=== PATIENT | male | born 1985 | race Caucasian/White ===

== ENCOUNTER 2024-05-29 17:28 | Inpatient (IN) ==
--- NOTE | 2024-05-29 18:13 | Emergency Department Note ---
Impression & Plan Acute tonsillitis, Strep tonsillitis, Fever, Non-ST elevation MS (NSTEMI), Tonsillar abscess ED Provider Note HISTORY OF PRESENT ILLNESS: Patient is a 38-year-old male presenting with fever and sore throat. Patient reports that he started have a "tickle" in his throat a week ago. He states that over the last week his throat pain has significantly worsened. He states that he is unable to lay flat secondary to being short of breath with his throat pain. He states that he feels like he is unable to swallow secondary to pain in the throat and a fullness in the back of his throat. Does report that his voice sounds different and that has been ongoing for the last 48 hours. He denies any measured fevers but states [place] [facility] [facility] that he has to hang his sheets up because he is soaking through them. He states that he was given Motrin 2 hours ago. He has not been on any recent antibiotics or steroids, but does state the prison gave him a dose of amoxicillin prior to him coming to the ER. He reports some slight pain with movement of his neck but states it is more of a fullness sensation. He denies any changes in vision. Denies any numbness or tingling or weakness in extremities. Denies any chest pain. He reports shortness of breath secondary to feeling like his throat is closing. ROS: as above PHYSICAL EXAM: Constitutional: Patient appears in no acute distress. Patient has a hoarse sounding voice. HENT: Head: Normocephalic and atraumatic. Eyes: EOMI, PERRL Mouth/Throat: Mucous membranes moist. Significant edema to the bilateral tonsils. Uvula is midline but is being compressed from both sides by the tonsils. No significant exudate on the tonsils. Neck: Trachea midline. Neck supple. Cardiovascular: Tachycardic with regular rhythm. No murmurs, rubs or gallops. Intact distal pulses. Pulmonary/Chest: No respiratory distress. Breath sounds clear and equal bilaterally. No wheezes or rales. Abdominal: Abdomen soft, no tenderness, rebound or guarding. Musculoskeletal: No edema, tenderness or deformity noted. Skin: Warm and dry. No rash, erythema, pallor or cyanosis Psychiatric: Appropriate mood and affect for situation. Neurological: Alert and keenly responsive. CN II-XII grossly intact, moving all extremities equally and fully. MDM: - Vitals signs showed fever and tachycardia. - History obtained via patient. History as above. - Chronic conditions affecting care: none - Differential diagnoses include, but are not limited to: retropharyngeal abscess; peritonsillar abscess; tonsillitis; pharyngitis; viral syndrome - Order placed for continuous cardiac monitoring. At this time, monitor showed rate of 90 bpm with normal sinus rhythm, per my interpretation. - External medical records reviewed. - EKG interpreted by myself showed normal sinus rhythm. Rate tachycardic at 116 bpm. QT 322. No acute ischemic changes. - Laboratory workup interpreted by myself showed leukocytosis (WBC 15.64) with neutrophil predominance; normal PT/INR; stable electrolytes; elevated troponin (82.8); normal lactate; normal procalcitonin - CXR negative for pneumonia, per my interpretation - Repeat troponin WNL - Patient given 2L NS, 1g IV tylenol and 6 mg IV dexamethasone for fluid resuscitation, fever and pharyngitis - Group A strep positive - Blood cultures obtained - Patient given IV unasyn in ER for pharyngitis - CT soft tissue neck wo contrast showed marked enlargement of pontine tonsils, left greater than right. No definite send peritonsillar abscess but recommended with IV contrast. - Discussed case with ENT control room technician, Dr. Grossman, at 21:05. Recommended steroids and anabiotics and follow up for tonsillectomy in outpatient setting. - CT soft tissue neck with IV contrast showed showed a [id number] left palatine tonsillar abscess. Remonstrated enlargement of pontine tonsils and asymmetric mucosal thickening of right oral and hypopharynx. - Dr. Grossman again contacted. Agreed with steroids and antibiotics. Will see as consult in hospital. - Given patient's significant posterior oropharynx swelling and difficulties tolerating oral intake, will admit to hospital service for airway monitoring and further hydration and antibiotics. - Discussion was had with child welfare caseworker about patient's case and need for admission - Hospitalist, Dr. Álvarez, consulted for admission - [facility] admitted to [facility] for further evaluation and management, ASSESSMENT AND PLAN: Diagnosis: acute tonsillitis; strep tonsillitis; fever; left tonsillar abscess; NSTEMI Plan: admit Past Med/Surg History Problem List (Updated 05/29/24 @ 22:37 by Michelle Ernst MD) Tonsillar abscess (Acute) Non-ST elevation MS (NSTEMI) (Acute) Fever (Acute) Strep tonsillitis (Acute) Acute tonsillitis (Acute) Social History Smoking Status: Unknown if ever smoked Preferred Language: Telugu Feels Safe at Home: Yes Results & Data (ED) Vital Signs Vital Signs - 24 hr 05/29/24 17:41 05/29/24 18:09 05/29/24 18:09 Temperature 37.8 C H Temperature Source Oral Pulse Rate 131 H 123 H 121 H Pulse Rate [Right Finger] Pulse Rate from SpO2 Sensor 119 H Pulse Rhythm [Right Finger] Pulse Strength [Right Finger] Respiratory Rate 18 14 Respiratory Effort / Characteristics Non-Labored Spontaneous Respiratory Depth Normal Respiratory Pattern Regular Blood Pressure 135/78 145/84 H Blood Pressure [Left Arm] Blood Pressure Mean 97 104 Blood Pressure Mean [Left Arm] Blood Pressure Position [Left Arm] Pulse Oximetry 92 96 Oxygen Delivery Method Room Air Room Air Sepsis Recent Fever Within 48 Hours Yes Sepsis New/Unexplained Change in Mental Status No Sepsis Action Taken by Nursing No Action Required 05/29/24 18:33 05/29/24 18:33 05/29/24 19:00 Temperature Temperature Source Pulse Rate 107 H 99 H Pulse Rate [Right Finger] 110 H Pulse Rate from SpO2 Sensor 108 H 102 H Pulse Rhythm [Right Finger] Regular Pulse Strength [Right Finger] Normal Respiratory Rate 14 16 16 Respiratory Effort / Characteristics Non-Labored Spontaneous Respiratory Depth Normal Respiratory Pattern Regular Blood Pressure 128/82 122/95 Blood Pressure [Left Arm] 128/82 Blood Pressure Mean 97 104 Blood Pressure Mean [Left Arm] 97 Blood Pressure Position [Left Arm] Sitting Pulse Oximetry 96 96 95 Oxygen Delivery Method Room Air Room Air Room Air Sepsis Recent Fever Within 48 Hours Sepsis New/Unexplained Change in Mental Status Sepsis Action Taken by Nursing 05/29/24 19:48 05/29/24 20:00 05/29/24 21:58 Temperature Temperature Source Pulse Rate 86 Pulse Rate [Right Finger] 86 Pulse Rate from SpO2 Sensor Pulse Rhythm [Right Finger] Regular Pulse Strength [Right Finger] Normal Respiratory Rate 18 Respiratory Effort / Characteristics Non-Labored Spontaneous Respiratory Depth Normal Respiratory Pattern Regular Blood Pressure Blood Pressure [Left Arm] 122/74 Blood Pressure Mean Blood Pressure Mean [Left Arm] 90 Blood Pressure Position [Left Arm] Semi-fowlers Pulse Oximetry 97 98 Oxygen Delivery Method Room Air Room Air Sepsis Recent Fever Within 48 Hours Sepsis New/Unexplained Change in Mental Status Sepsis Action Taken by Nursing Laboratory Data 05/29/24 18:20 05/29/24 18:20 Lab Results 05/29/24 05/29/24 05/29/24 Range/Units 18:10 18:20 21:11 WBC 15.64 H (4.8-10.8) K/ul RBC 4.10 L (4.70-6.10) M/uL Hgb 9.4 L (14.0-18.0) g/dl Hct 30.7 L (42.0-52.0) % MCV 74.9 L (80.0-100.0) fL MCH 22.9 L (25.0-34.0) pg MCHC 30.6 L (32.0-36.0) g/dL RDW Std Deviation 40.6 (36.4-46.3) fL RDW Coeff of Flor 15.0 H (11.5-14.5) % Plt Count 340 (130-400) K/uL MPV 10.5 (9.4-12.4) fL Immature Gran % (Auto) 0.3 % Neut % (Auto) 82.2 % Lymph % (Auto) 6.1 % [place] % (Auto) 11.1 % Eos % (Auto) 0.1 % Baso % (Auto) 0.2 % Neut # (Auto) 12.85 H (1.40-6.50) K/uL Lymph # (Auto) 0.95 L (1.20-3.40) K/uL [place] # (Auto) 1.74 H (0.11-0.59) K/uL Eos # (Auto) 0.02 (0.00-0.50) K/uL Baso # (Auto) 0.03 (0.00-0.20) K/uL Immature Gran # (Auto) 0.05 (0.01-0.20) K/uL PT 11.4 (9.0-12.0) Seconds INR 1.1 (0.9-1.1) Sodium 137 (136-145) mmol/L Potassium 3.7 (3.5-5.1) mmol/L Chloride 102 (98-107) mmol/L Carbon Dioxide 28 (21-32) mmol/L Anion Gap 7 (3-11) BUN 11 (6-23) mg/dl Creatinine 0.81 (0.6-1.4) mg/dl Est Cr Clr Drug Dosing 124.9 ml/min eGFR 116.46 BUN/Creatinine Ratio 13.6 (10-20) Glucose 110 H (70-99(Fasting)) mg/dl Lactate 0.8 (0.4-2.0) mmol/L Calcium 8.4 L (8.6-10.3) mg/dl Magnesium 1.8 (1.7-2.4) mg/dl Total Bilirubin 0.6 (0.2-1.0) mg/dl Direct Bilirubin 0.1 (0-0.2) mg/dl AST 17 (13-39) U/L ALT 17 (7-52) U/L Alkaline Phosphatase 124 H (34-104) U/L Troponin I High Sens 62.8 H* 11.2 D (0-20) pg/ml Total Protein 6.5 (6.0-8.3) gm/dl Albumin 3.6 (3.4-5.0) gm/dl Procalcitonin 0.13 (0-0.5) ng/ml Adenovirus (PCR) Not Detected (NotDetected) B. pertussis DNA (PCR) Not Detected (NotDetected) B.parapertussis DNA PCR Not Detected (NotDetected) C. pneumoniae DNA (PCR) Not Detected (NotDetected) Coronavirus OC43 (PCR) Not Detected (NotDetected) Coronavirus HKU1 (PCR) Not Detected (NotDetected) Coronavirus 229E (PCR) Not Detected (NotDetected) SARS-CoV-2 (PCR) Not Detected (NotDetected) Coronavirus NL63 (PCR) Not Detected (NotDetected) Human Metapneumovir PCR Not Detected (NotDetected) Influenza Type A (PCR) Not Detected (NotDetected) Influenza Type B (PCR) Not Detected (NotDetected) M. pneumoniae (PCR) Not Detected (NotDetected) Parainfluenza 1 (PCR) Not Detected (NotDetected) Parainfluenza 2 (PCR) Not Detected (NotDetected) Parainfluenza 3 (PCR) Not Detected (NotDetected) Parainfluenza 4 (PCR) Not Detected (NotDetected) RSV (PCR) Not Detected (NotDetected) Entero/Rhino (PCR) Not Detected (NotDetected) Group A Strep (PCR) DETECTED A (NotDetected) Administered Medications Discontinued Medications Dexamethasone Sodium Phosphate (DexamethasonePf 10 Mg/Ml Vial) 6 mg IV NOW ONE Stop: 05/29/24 18:11 Last Admin: 05/29/24 18:28 Dose: 6 mg Documented By: [facility] Acetaminophen (Ofirmev) 1,000 mg in 100 mls @ 400 mls/hr IV NOW STA Stop: 05/29/24 18:03 Last Infusion: 05/29/24 18:50 Dose: Infused Documented By: [facility] Admin: 05/29/24 18:28 Dose: 400 mls/hr Documented By: [facility] Sodium Chloride (Nss) 1,000 mls @ 999 mls/hr IV .Q1H1M ONE Stop: 05/29/24 19:10 Last Infusion: 05/29/24 21:58 Dose: Infused Documented By: Admin: 05/29/24 18:49 Dose: 999 mls/hr Documented By: [facility] Infusion: 05/29/24 18:49 Dose: Infused Documented By: [facility] Admin: 05/29/24 18:30 Dose: 999 mls/hr Documented By: [facility] Sodium Chloride (Nss) 1,000 mls @ 999 mls/hr IV .Q1H1M ONE Stop: 05/29/24 19:23 Last Infusion: 05/29/24 20:33 Dose: Infused Documented By: S Admin: 05/29/24 18:50 Dose: 999 mls/hr Documented By: [facility] Ampicillin Sodium/Sulbactam Sodium (Unasyn) 3,000 mg in 100 mls @ 200 mls/hr IV NOW STA Stop: 05/29/24 18:52 Last Infusion: 05/29/24 20:56 Dose: Infused Documented By: Admin: 05/29/24 18:46 Dose: 200 mls/hr Documented By: [facility] Ioversol (Optiray 320 100ml) 93 ml IV ONCE ONE Stop: 05/29/24 21:04 Last Admin: 05/29/24 21:03 Dose: 93 ml Documented By: [facility] Imaging Data Radiologist's Impression: Chest X-Ray 05/29/24 17:48 EXAM: Radiograph of the Chest 1 View INDICATION: Sepsis. TECHNIQUE: Frontal view of the chest. COMPARISON: No relevant prior studies available. FINDINGS: Lungs and pleural spaces: No consolidation or pulmonary edema. No pleural effusion or pneumothorax. Heart: Shape and configuration within normal limits allowing for technique. Mediastinum: Normal contour. Bones/joints: No fracture, erosion or dislocation. Soft tissues: No abnormality noted. No radiopaque foreign body noted. Upper abdomen: No abnormality noted. IMPRESSION: No abnormality noted. ACT 112: Negative or not required by law. Electronically signed by Magy Adam 05-29-2024 6:50 PM Soft Tissue [address] 05/29/24 18:09 Exam(s): CT NECK Without Contrast EXAM: CT Neck Without Intravenous Contrast CLINICAL HISTORY: Throat Pain. TECHNIQUE: Axial computed tomography images of the neck without intravenous contrast. CTDI is 15.69 mGy and DLP is 428.76 mGy-cm. Automated exposure control was utilized for the study. A dose lowering technique was utilized adhering to the principles of ALARA. COMPARISON: No relevant prior studies available. FINDINGS: Brainstem: Marked enlargement of the pontine tonsils, left greater than right. Oropharynx: There is asymmetric thickening of the left oropharynx and hypopharynx. Hypopharynx: See above. Larynx: Unremarkable. Normal epiglottis. Trachea: Unremarkable. Retropharyngeal space: Unremarkable. Submandibular/parotid glands: Unremarkable. Glands are normal in size. Thyroid: Unremarkable. No enlarged or calcified nodules. Bones/joints: No acute fracture. Soft tissues: Unremarkable. Vasculature: No acute findings. Lymph nodes: Prominent bilateral lymphadenopathy is likely reactive, although nonspecific. Lung apices: Unremarkable as visualized. IMPRESSION: 1. Marked enlargement of the pontine tonsils, left greater than right. No definitive evidence of peritonsillar abscess, although evaluation is limited without IV contrast. 2. There is asymmetric thickening of the left oropharynx and hypopharynx. This is nonspecific. 3. Prominent bilateral lymphadenopathy is likely reactive, although nonspecific. Electronically signed by: Tracey Dias MD 05/29/24 20:[address] 05/29/24 20:45 Exam(s): CT NECK With Contrast IV Amt: 93ml opti 320 EXAM: CT Neck With Intravenous Contrast CLINICAL HISTORY: Tonsillar hypertrophy. TECHNIQUE: Axial computed tomography images of the neck with intravenous contrast. CTDI is 17.29 mGy and DLP is 485.21 mGy-cm. Automated exposure control was utilized for the study. A dose lowering technique was utilized adhering to the principles of ALARA. CONTRAST: Patient received 93ml opti 320 of IV contrast COMPARISON: CT neck without contrast from earlier today FINDINGS: Oropharynx: There is a 9 x 15 x 8 mm left palatine tonsillar abscess. No peritonsillar abscess. Hypopharynx: Redemonstrated enlargement of the pontine tonsils and asymmetric mucosal thickening of the right oral and hypopharynx. Larynx: Unremarkable. Normal epiglottis. Trachea: Unremarkable. Retropharyngeal space: Unremarkable. Submandibular/parotid glands: Unremarkable. Glands are normal in size. Thyroid: Unremarkable. No enlarged or calcified nodules. Bones/joints: No acute fracture. Soft tissues: Unremarkable. Vasculature: No acute findings. Lymph nodes: Unremarkable. No lymphadenopathy. Lung apices: Unremarkable as visualized. IMPRESSION: 1. There is a 9 x 15 x 8 mm left palatine tonsillar abscess. Redemonstrated enlargement of the pontine tonsils and asymmetric mucosal thickening of the right oral and hypopharynx. This is likely infectious. 2. No peritonsillar abscess. Electronically signed by: Tracey Dias MD 05/29/24 22:24 PM Discharge Plan Visit Data Chief Complaint: Shortness of Breath/Dyspnea Stated Complaint: SOB DUE TO SORE THROAT ED Provider: Michelle Ernst Discharge Problem: Acute tonsillitis, Strep tonsillitis, Fever, Non-ST elevation MS (NSTEMI), Tonsillar abscess Forms Stand Alone Forms: [facility] Referrals Referrals: [facility], [facility] [Other]
[2024-05-29] MEDS: dexAMETHasone**PF** 10 MG/ML VIAL IV ONE (18:28)
[2024-05-29] MEDS: ACETAMINOPHEN 1,000 MG/100 ML VIAL IV STA (18:28)
[2024-05-29] MEDS: SODIUM CHLORIDE 0.9% 1,000 ML IV ONE ×2 (18:30→18:50)
[2024-05-29] MEDS: AMPICILLIN/SULBACTAM SOD 3,000 MG/100 ML BAG IV STA (18:46)
--- NOTE | 2024-05-29 18:51 | XRay Report ---
EXAM: Radiograph of the Chest 1 View INDICATION: Sepsis. TECHNIQUE: Frontal view of the chest. COMPARISON: No relevant prior studies available. FINDINGS: Lungs and pleural spaces: No consolidation or pulmonary edema. No pleural effusion or pneumothorax. Heart: Shape and configuration within normal limits allowing for technique. Mediastinum: Normal contour. Bones/joints: No fracture, erosion or dislocation. Soft tissues: No abnormality noted. No radiopaque foreign body noted. Upper abdomen: No abnormality noted. IMPRESSION: No abnormality noted. ACT 112: Negative or not required by law. Electronically signed by Magy Adam 05-29-2024 6:50 PM
[2024-05-29 18:54] LABS: Basophils # (auto) 0.03 K/uL (0.00-0.20); Basophils % (auto) 0.2 %; Eosinophils # (auto) 0.02 K/uL (0.00-0.50); Eosinophils % (auto) 0.1 %; Hematocrit (blood only) 30.7 % (42.0-52.0); Hemoglobin 9.4 g/dl (14.0-18.0); Immature Granulocytes # (auto) 0.05 K/uL (0.01-0.20); Immature Granulocytes % (auto) 0.3 %; Lymphocytes # (auto) 0.95 K/uL (1.20-3.40); Lymphocytes % (auto) 6.1 %; Mean Corpuscular Hemoglobin 22.9 pg (25.0-34.0); Mean Corpuscular Hgb Conc 30.6 g/dL (32.0-36.0); Mean Corpuscular Volume 74.9 fL (80.0-100.0); Mean Platelet Volume 10.5 fL (9.4-12.4); Monocytes # (auto) 1.74 K/uL (0.11-0.59); Monocytes % (auto) 11.1 %; Neutrophils # (auto) 12.85 K/uL (1.40-6.50); Neutrophils % (auto) 82.2 %; Platelet Count 340 K/uL (130-400); RDW Standard Deviation 40.6 fL (36.4-46.3); White Blood Count 15.64 K/ul (4.8-10.8)
[2024-05-29 19:07] LABS: Albumin Level 3.6 gm/dl (3.4-5.0); BUN Creatinine Ratio 13.6 (10-20); Bilirubin Direct 0.1 mg/dl (0-0.2); Bilirubin,Total 0.6 mg/dl (0.2-1.0); Calcium 8.4 mg/dl (8.6-10.3); Creatinine Clr Calc Pharmacy 124.9 ml/min; Magnesium 1.8 mg/dl (1.7-2.4); Potassium 3.7 mmol/L (3.5-5.1); Total Protein 6.5 gm/dl (6.0-8.3)
[2024-05-29 19:19] LABS: INR 1.1 (0.9-1.1); Prothrombin Time 11.4 Seconds (9.0-12.0); Troponin I High Sensitivity 62.8 pg/ml (0-20)
[2024-05-29 19:53] LABS: Adenovirus PCR Not Detected (NotDetected); Bordetella parapertussis PCR Not Detected (NotDetected); Bordetella pertussis PCR Not Detected (NotDetected); Chlamydia pneumoniae PCR Not Detected (NotDetected); Coronavirus 229E PCR Not Detected (NotDetected); Coronavirus CoV-2 (COVID19)PCR Not Detected (NotDetected); Coronavirus HKU1 PCR Not Detected (NotDetected); Coronavirus NL63 PCR Not Detected (NotDetected); Coronavirus OC43PCR Not Detected (NotDetected); Human Metapneumovirus PCR Not Detected (NotDetected); Influenza A PCR Not Detected (NotDetected); Influenza B PCR Not Detected (NotDetected); Mycoplasma pneumoniae PCR Not Detected (NotDetected); Parainfluenza Virus 1 PCR Not Detected (NotDetected); Parainfluenza Virus 2 PCR Not Detected (NotDetected); Parainfluenza Virus 3 PCR Not Detected (NotDetected); Parainfluenza Virus 4 PCR Not Detected (NotDetected); Respiratory Syncytial VirusPCR Not Detected (NotDetected); Rhinovirus/Enterovirus PCR Not Detected (NotDetected)
--- NOTE | 2024-05-29 20:38 | CT Scan Report ---
Exam(s): CT NECK Without Contrast EXAM: CT Neck Without Intravenous Contrast CLINICAL HISTORY: Throat Pain. TECHNIQUE: Axial computed tomography images of the neck without intravenous contrast. CTDI is 15.69 mGy and DLP is 428.76 mGy-cm. Automated exposure control was utilized for the study. A dose lowering technique was utilized adhering to the principles of ALARA. COMPARISON: No relevant prior studies available. FINDINGS: Brainstem: Marked enlargement of the pontine tonsils, left greater than right. Oropharynx: There is asymmetric thickening of the left oropharynx and hypopharynx. Hypopharynx: See above. Larynx: Unremarkable. Normal epiglottis. Trachea: Unremarkable. Retropharyngeal space: Unremarkable. Submandibular/parotid glands: Unremarkable. Glands are normal in size. Thyroid: Unremarkable. No enlarged or calcified nodules. Bones/joints: No acute fracture. Soft tissues: Unremarkable. Vasculature: No acute findings. Lymph nodes: Prominent bilateral lymphadenopathy is likely reactive, although nonspecific. Lung apices: Unremarkable as visualized. IMPRESSION: 1. Marked enlargement of the pontine tonsils, left greater than right. No definitive evidence of peritonsillar abscess, although evaluation is limited without IV contrast. 2. There is asymmetric thickening of the left oropharynx and hypopharynx. This is nonspecific. 3. Prominent bilateral lymphadenopathy is likely reactive, although nonspecific. Electronically signed by: Tracey Dias MD 05/29/24 20:37 PM
[2024-05-29] MEDS: OPTIRAY 320 100ml IV ONE (21:03)
--- NOTE | 2024-05-29 22:25 | CT Scan Report ---
Exam(s): CT NECK With Contrast IV Amt: 93ml opti 320 EXAM: CT Neck With Intravenous Contrast CLINICAL HISTORY: Tonsillar hypertrophy. TECHNIQUE: Axial computed tomography images of the neck with intravenous contrast. CTDI is 17.29 mGy and DLP is 485.21 mGy-cm. Automated exposure control was utilized for the study. A dose lowering technique was utilized adhering to the principles of ALARA. CONTRAST: Patient received 93ml opti 320 of IV contrast COMPARISON: CT neck without contrast from earlier today FINDINGS: Oropharynx: There is a 9 x 15 x 8 mm left palatine tonsillar abscess. No peritonsillar abscess. Hypopharynx: Redemonstrated enlargement of the pontine tonsils and asymmetric mucosal thickening of the right oral and hypopharynx. Larynx: Unremarkable. Normal epiglottis. Trachea: Unremarkable. Retropharyngeal space: Unremarkable. Submandibular/parotid glands: Unremarkable. Glands are normal in size. Thyroid: Unremarkable. No enlarged or calcified nodules. Bones/joints: No acute fracture. Soft tissues: Unremarkable. Vasculature: No acute findings. Lymph nodes: Unremarkable. No lymphadenopathy. Lung apices: Unremarkable as visualized. IMPRESSION: 1. There is a 9 x 15 x 8 mm left palatine tonsillar abscess. Redemonstrated enlargement of the pontine tonsils and asymmetric mucosal thickening of the right oral and hypopharynx. This is likely infectious. 2. No peritonsillar abscess. Electronically signed by: Tracey Dias MD 05/29/24 22:24 PM
[2024-05-29 23:34] LABS: Appearance Urine Clear (Clear); Bilirubin Urine Negative (Negative); Blood Urine Negative (Negative); Color Urine Yellow; Glucose Urine UA Negative (Negative); Ketones Urine 2+ (Negative); Leukocyte Esterase Urine Negative (Negative); Nitrite Urine Negative (Negative); Protein Urine Negative (Negative); Specific Gravity Urine > 1.045 (1.000-1.030); Urobilinogen Urine Negative (Negative); pH Urine 5.5 (4.5-7.5)
[2024-05-30] MEDS: Patient's ALLERGY Info needs ENTERED STA (00:05)
--- NOTE | 2024-05-30 00:11 | History & Physical Report ---
Date of Service May 29, 2024 Assessment & Plan (1) Tonsillar abscess: Plan: 38-year-old male with no significant past medical history coming from jail states that since last 5 days he is having sore throat which is getting progressively worse. Today he was feeling short of breath and also difficulty swallowing. Was given a dose of Augmentin in the jail and was sent in here. Was spiking temperatures in the ER. CT scan with contrast showing tonsillar abscess. Status post Unasyn and Decadron. Currently he is feeling better. States currently shortness of breath improved and no difficulty swallowing and states he can eat okay now. Denies any headache. No chest pain or shortness of. No nausea. No abdominal pain. Normal bowel and bladder movements. Denies blood in stools or black stools. Denies hematuria. Hemodynamics okay currently. Patient states he takes Suboxone 12 mg daily and is confirmed on phone with the medical [facility] at jail. Tonsillar abscess Group A strep on bio fire Tonsillitis Left [place] tonsillar abscess Presented with shortness of breath and difficulty swallowing Received Decadron and Unasyn and currently feeling better Saturating okay on room air Seems comfortable Will keep him n.p.o., IV fluids IV Unasyn IV Tylenol as needed ENT consulted Close monitor Anemia Hemoglobin 9.4 MCV 74 Will check stool for Hemoccult Iron studies Vitamin B12 and folate levels Needs follow-up Elevated troponin Initial troponin 62 but repeat is 11.2 Will follow serial enzymes and echo Patient on Suboxone DVT prophylaxis SCDs for now Disposition Telemetry Full code. History of Present Illness Chief Complaint: Sore throat and shortness of breath Primary Care Provider: [facility] 38-year-old male with no significant past medical history coming from jail states that since last 5 days he is having sore throat which is getting progressively worse. Today he was feeling short of breath and also difficulty swallowing. Was given a dose of Augmentin in the jail and was sent in here. Was spiking temperatures in the ER. CT scan with contrast showing tonsillar abscess. Status post Unasyn and Decadron. Currently he is feeling better. States currently shortness of breath improved and no difficulty swallowing and states he can eat okay now. Denies any headache. No chest pain or shortness of. No nausea. No abdominal pain. Normal bowel and bladder movements. Denies blood in stools or black stools. Denies hematuria. Hemodynamics okay currently. Patient states he takes Suboxone 12 mg daily and is confirmed on phone with the medical department at [facility]. Past medical history. None Past surgical history none as per patient Social history. Used to smoke 2 packs of cigarettes in a week for about 5 to 8 years but not smoking since last 2 years. Denies any alcohol use. Denies any drug use. Family history. Denies any family history. Allergies Allergy/AdvReac Type Severity Reaction Status Date / Time No Known Allergies Allergy Unverified 05/30/24 00:02 Home Medications Medication Instructions Recorded Confirmed Type Suboxone 13 mg PO DAILY 05/30/24 05/30/24 History buprenorphine HCl 2 mg sublingual 4 mg sublingual DAILY 05/30/24 05/30/24 History tablet buprenorphine HCl 8 mg sublingual 8 mg sublingual DAILY 05/30/24 05/30/24 History tablet Past Med/Surg History Problem List (Updated 05/29/24 @ 22:37 by Michelle Ernst MD) Tonsillar abscess (Acute) Non-ST elevation [place] (NSTEMI) (Acute) Fever (Acute) Strep tonsillitis (Acute) Acute tonsillitis (Acute) Social History Smoking Status: Former smoker Tobacco Type: Cigarettes Smoking End Date: 2021; Hx Alcohol Use: No Hx Substance Use: Yes Preferred Language: Lithuanian Communication Ability: Effective Hose Cementer Required: No Beliefs That Will Affect Care: None Current Living Situation: Other Current Living Situation Comment: [facility] Feels Safe at Home: Yes Assistive Devices: Glasses Review of Systems Review of Systems: All systems reviewed & are unremarkable except as noted in HPI & below Physical Exam Physical Exam: General- Not in distress Head- atraumatic Eyes- PERRL ENT- enlarged tonsils seen Neck- supple, no JVD. Lungs- clear to auscultation no wheezing or crackles Heart- regular rhythm; no murmur, no gallop. Abdomen- normal bowel sounds, soft, nontender, no distension. Extremities- no pretibial edema, no erythema seen Neuro- alert, oriented PERRL, no facial palsy; no dysarthria; moves extremities Results & Data Results & Data Vital Signs (Past 12 Hours) Vital Signs Temp Pulse Pulse Resp BP BP Pulse Ox 05/29/24 22:00 92 H 18 120/81 98 05/29/24 21:58 86 05/29/24 20:00 86 18 122/74 98 05/29/24 19:48 97 05/29/24 19:00 99 H 16 122/95 95 05/29/24 18:33 107 H 16 128/82 96 05/29/24 18:33 110 H 14 128/82 96 05/29/24 18:09 121 H 14 145/84 H 96 05/29/24 18:09 123 H 05/29/24 17:41 37.8 C H 131 H 18 135/78 92 O2 Del Method 05/29/24 22:00 Room Air 05/29/24 21:58 05/29/24 20:00 Room Air 05/29/24 19:48 Room Air 05/29/24 19:00 Room Air 05/29/24 18:33 Room Air 05/29/24 18:33 Room Air 05/29/24 18:09 Room Air 05/29/24 18:09 05/29/24 17:41 Room Air Diagnostic Findings Laboratory Results WBC 15.64 K/ul (4.8-10.8) H 05/29/24 18:20 RBC 4.10 M/uL (4.70-6.10) L 05/29/24 18:20 Hgb 9.4 g/dl (14.0-18.0) L 05/29/24 18:20 Hct 30.7 % (42.0-52.0) L 05/29/24 18:20 MCV 74.9 fL (80.0-100.0) L 05/29/24 18:20 MCH 22.9 pg (25.0-34.0) L 05/29/24 18:20 MCHC 30.6 g/dL (32.0-36.0) L 05/29/24 18:20 RDW Std Deviation 40.6 fL (36.4-46.3) 05/29/24 18:20 RDW Coeff of Flor 15.0 % (11.5-14.5) H 05/29/24 18:20 Plt Count 340 K/uL (130-400) 05/29/24 18:20 MPV 10.5 fL (9.4-12.4) 05/29/24 18:20 Immature Gran % (Auto) 0.3 % 05/29/24 18:20 Neut % (Auto) 82.2 % 05/29/24 18:20 Lymph % (Auto) 6.1 % 05/29/24 18:20 [place] % (Auto) 11.1 % 05/29/24 18:20 Eos % (Auto) 0.1 % 05/29/24 18:20 Baso % (Auto) 0.2 % 05/29/24 18:20 Neut # (Auto) 12.85 K/uL (1.40-6.50) H 05/29/24 18:20 Lymph # (Auto) 0.95 K/uL (1.20-3.40) L 05/29/24 18:20 [place] # (Auto) 1.74 K/uL (0.11-0.59) H 05/29/24 18:20 Eos # (Auto) 0.02 K/uL (0.00-0.50) 05/29/24 18:20 Baso # (Auto) 0.03 K/uL (0.00-0.20) 05/29/24 18:20 Immature Gran # (Auto) 0.05 K/uL (0.01-0.20) 05/29/24 18:20 PT 11.4 Seconds (9.0-12.0) 05/29/24 18:20 INR 1.1 (0.9-1.1) 05/29/24 18:20 Sodium 137 mmol/L (136-145) 05/29/24 18:20 Potassium 3.7 mmol/L (3.5-5.1) 05/29/24 18:20 Chloride 102 mmol/L (98-107) 05/29/24 18:20 Carbon Dioxide 28 mmol/L (21-32) 05/29/24 18:20 Anion Gap 7 (3-11) 05/29/24 18:20 BUN 11 mg/dl (6-23) 05/29/24 18:20 Creatinine 0.81 mg/dl (0.6-1.4) 05/29/24 18:20 Est Cr Clr Drug Dosing 124.9 ml/min 05/29/24 18:20 eGFR 116.46 05/29/24 18:20 BUN/Creatinine Ratio 13.6 (10-20) 05/29/24 18:20 Glucose 110 mg/dl (70-99(Fasting)) H 05/29/24 18:20 Lactate 0.8 mmol/L (0.4-2.0) 05/29/24 18:20 Calcium 8.4 mg/dl (8.6-10.3) L 05/29/24 18:20 Magnesium 1.8 mg/dl (1.7-2.4) 05/29/24 18:20 Total Bilirubin 0.6 mg/dl (0.2-1.0) 05/29/24 18:20 Direct Bilirubin 0.1 mg/dl (0-0.2) 05/29/24 18:20 AST 17 U/L (13-39) 05/29/24 18:20 ALT 17 U/L (7-52) 05/29/24 18:20 Alkaline Phosphatase 124 U/L (34-104) H 05/29/24 18:20 Troponin I High Sens 11.2 pg/ml (0-20) D 05/29/24 21:11 Total Protein 6.5 gm/dl (6.0-8.3) 05/29/24 18:20 Albumin 3.6 gm/dl (3.4-5.0) 05/29/24 18:20 Procalcitonin 0.13 ng/ml (0-0.5) 05/29/24 18:20 Urine Color Yellow 05/29/24 23:10 Urine Appearance Clear (Clear) 05/29/24 23:10 Urine pH 5.5 (4.5-7.5) 05/29/24 23:10 Ur Specific [place] > 1.045 (1.000-1.030) H 05/29/24 23:10 Urine Protein Negative (Negative) 05/29/24 23:10 Urine Glucose (UA) Negative (Negative) 05/29/24 23:10 Urine Ketones 2+ (Negative) H 05/29/24 23:10 Urine Blood Negative (Negative) 05/29/24 23:10 Urine Nitrite Negative (Negative) 05/29/24 23:10 Urine Bilirubin Negative (Negative) 05/29/24 23:10 Urine Urobilinogen Negative (Negative) 05/29/24 23:10 Ur Leukocyte Esterase Negative (Negative) 05/29/24 23:10 Adenovirus (PCR) Not Detected (NotDetected) 05/29/24 18:10 B. pertussis DNA (PCR) Not Detected (NotDetected) 05/29/24 18:10 B.parapertussis DNA PCR Not Detected (NotDetected) 05/29/24 18:10 C. pneumoniae DNA (PCR) Not Detected (NotDetected) 05/29/24 18:10 Coronavirus OC43 (PCR) Not Detected (NotDetected) 05/29/24 18:10 Coronavirus HKU1 (PCR) Not Detected (NotDetected) 05/29/24 18:10 Coronavirus 229E (PCR) Not Detected (NotDetected) 05/29/24 18:10 SARS-CoV-2 (PCR) Not Detected (NotDetected) 05/29/24 18:10 Coronavirus NL63 (PCR) Not Detected (NotDetected) 05/29/24 18:10 Human Metapneumovir PCR Not Detected (NotDetected) 05/29/24 18:10 Influenza Type A (PCR) Not Detected (NotDetected) 05/29/24 18:10 Influenza Type B (PCR) Not Detected (NotDetected) 05/29/24 18:10 M. pneumoniae (PCR) Not Detected (NotDetected) 05/29/24 18:10 Parainfluenza 1 (PCR) Not Detected (NotDetected) 05/29/24 18:10 Parainfluenza 2 (PCR) Not Detected (NotDetected) 05/29/24 18:10 Parainfluenza 3 (PCR) Not Detected (NotDetected) 05/29/24 18:10 Parainfluenza 4 (PCR) Not Detected (NotDetected) 05/29/24 18:10 RSV (PCR) Not Detected (NotDetected) 05/29/24 18:10 Entero/Rhino (PCR) Not Detected (NotDetected) 05/29/24 18:10 Group A Strep (PCR) DETECTED (NotDetected) A 05/29/24 18:10 Impressions Chest X-Ray 05/29/24 17:48 EXAM: Radiograph of the Chest 1 View INDICATION: Sepsis. TECHNIQUE: Frontal view of the chest. COMPARISON: No relevant prior studies available. FINDINGS: Lungs and pleural spaces: No consolidation or pulmonary edema. No pleural effusion or pneumothorax. Heart: Shape and configuration within normal limits allowing for technique. Mediastinum: Normal contour. Bones/joints: No fracture, erosion or dislocation. Soft tissues: No abnormality noted. No radiopaque foreign body noted. Upper abdomen: No abnormality noted. IMPRESSION: No abnormality noted. ACT 112: Negative or not required by law. Electronically signed by Magy Adam 05-29-2024 6:[address] PM Soft Tissue Neck CT 05/29/24 20:45 Exam(s): CT NECK With Contrast IV Amt: 93ml opti 320 EXAM: CT Neck With Intravenous Contrast CLINICAL HISTORY: Tonsillar hypertrophy. TECHNIQUE: Axial computed tomography images of the neck with intravenous contrast. CTDI is 17.29 mGy and DLP is 485.21 mGy-cm. Automated exposure control was utilized for the study. A dose lowering technique was utilized adhering to the principles of ALARA. CONTRAST: Patient received 93ml opti 320 of IV contrast COMPARISON: CT neck without contrast from earlier today FINDINGS: Oropharynx: There is a 9 x 15 x 8 mm left palatine tonsillar abscess. No peritonsillar abscess. Hypopharynx: Redemonstrated enlargement of the pontine tonsils and asymmetric mucosal thickening of the right oral and hypopharynx. Larynx: Unremarkable. Normal epiglottis. Trachea: Unremarkable. Retropharyngeal space: Unremarkable. Submandibular/parotid glands: Unremarkable. Glands are normal in size. Thyroid: Unremarkable. No enlarged or calcified nodules. Bones/joints: No acute fracture. Soft tissues: Unremarkable. Vasculature: No acute findings. Lymph nodes: Unremarkable. No lymphadenopathy. Lung apices: Unremarkable as visualized. IMPRESSION: 1. There is a 9 x 15 x 8 mm left palatine tonsillar abscess. Redemonstrated enlargement of the pontine tonsils and asymmetric mucosal thickening of the right oral and hypopharynx. This is likely infectious. 2. No peritonsillar abscess. Electronically signed by: Tracey Dias MD 05/29/24 22:24 PM ECG Additional Comments: ECG sinus tachycardia rate of 116. No acute ST changes seen. QTc 447. Code Status & VTE Plan VTE Prophylaxis Plan VTE Prophylaxis will be ordered: Yes
[2024-05-30] MEDS ORDERED: NITROGLYCERIN SL 0.4 MG/TAB TAB SL PRN (01:58)
[2024-05-30] MEDS: SODIUM CHLORIDE 0.9% 1,000 ML IV SCH (02:26)
[2024-05-30] MEDS: AMPICILLIN/SULBACTAM SOD 3,000 MG/100 ML BAG IV SCH (02:44)
--- NOTE | 2024-05-30 06:56 | Consultation ---
Date of Consultation May 30, 2024 Assessment & Plan (1) Tonsillar abscess: 38 year old with severe bilateral tonsillitis/unilateral tonsillar abscess. He does not have a Peritonsillar abscess. Discussed case [facility] ED physician last night. Admitted and treated with corticosteroids and antiobiotics. Much improved. Typically tonsillar abscesses are treated initially with medical therapy and most improve. Tonsillar abscesses do sometimes require I&D if medical therapy fails. (Different from jo-tonsillar). Patient reports his symptoms are much improved overnight. Discussed options of quinsy tonsillectomy vice continued steroids and antibiotics as outpatient and interval tonsillectomy. We agreed on the latter course of action as long as his symptoms continue to improve. Will submit for his surgery at my office this morning. (2) Acute tonsillitis: Plan see above History of Present Illness Reason for Consultation: Sore throat. Attending Physician: Jacob Ortiz MD History of Present Illness 38 year old incarcerated male presents with tonsillitis. He reports severe sore throat, oropharyngeal dysphagia and bilateral tonsillar enlargement. He has 2 previous episodes similar to this but that did not require hospitalization. Allergies Allergy/AdvReac Type Severity Reaction Status Date / Time No Known Allergies Allergy Unverified 05/30/24 00:02 Home Medications Medication Instructions Recorded Confirmed Type Suboxone 13 mg PO DAILY 05/30/24 05/30/24 History buprenorphine HCl 2 mg sublingual 4 mg sublingual DAILY 05/30/24 05/30/24 History tablet buprenorphine HCl 8 mg sublingual 8 mg sublingual DAILY 05/30/24 05/30/24 History tablet Patient History Social History Smoking Status: Former smoker Tobacco Type: Cigarettes Smoking End Date: 2021; Hx Alcohol Use: No Hx Substance Use: Yes Preferred Language: Eritrean Communication Ability: Effective Transverse Abdominal Muscle Nurse Required: No Beliefs That Will Affect Care: None Current Living Situation: Other Current Living Situation Comment: [facility] Feels Safe at Home: Yes Assistive Devices: Glasses Review of Systems Review of Systems: No pertinent ROS positives unless otherwise mentioned in the HPI Physical Exam Physical Exam: Ears: Normal pinna Nose: No external deformity Neck: trachea midline Neuro: Alert and oriented, Moves all 4 extremities, Symmetric and normal facial nerve function Derm: No lesions noted on face or neck Cardiovascular: No JVD Oral: 4+ tonsils bilaterally. No stridor. Patient controlling secretions. Results & Data Vital Signs (Past 12 Hours) Vital Signs Temp Pulse Pulse Resp BP BP Pulse Ox 05/30/24 01:51 90 05/30/24 01:40 37 C 101 H 20 136/85 94 05/30/24 01:30 78 18 114/69 98 05/30/24 00:00 90 18 123/75 98 05/29/24 22:00 92 H 18 120/81 98 05/29/24 21:58 86 05/29/24 20:00 86 18 122/74 98 05/29/24 19:48 97 05/29/24 19:00 99 H 16 122/95 95 O2 Del Method 05/30/24 01:51 05/30/24 01:40 Room Air 05/30/24 01:30 Room Air 05/30/24 00:00 Room Air 05/29/24 22:00 Room Air 05/29/24 21:58 05/29/24 20:00 Room Air 05/29/24 19:48 Room Air 05/29/24 19:00 Room Air Laboratory Results Leukocystosis noted. Patient is also anemic. Group A strep positive. Diagnostic Findings independently interpreted CT neck soft tissue. Very prominent bilateral tonsils. There is a 1.5 cm intra-tonsillar abscess (no ELECTROPHYSIOLOGIST).
[2024-05-30 07:57] LABS: Basophils # (auto) 0.03 K/uL (0.00-0.20); Basophils % (auto) 0.2 %; Eosinophils # (auto) 0.01 K/uL (0.00-0.50); Eosinophils % (auto) 0.1 %; Hematocrit (blood only) 28.7 % (42.0-52.0); Hemoglobin 8.6 g/dl (14.0-18.0); Immature Granulocytes % (auto) 0.6 %; Lymphocytes # (auto) 0.88 K/uL (1.20-3.40); Lymphocytes % (auto) 5.3 %; Mean Corpuscular Hemoglobin 22.9 pg (25.0-34.0); Mean Corpuscular Volume 76.3 fL (80.0-100.0); Mean Platelet Volume 10.5 fL (9.4-12.4); Monocytes # (auto) 0.92 K/uL (0.11-0.59); Monocytes % (auto) 5.5 %; Neutrophils # (auto) 14.77 K/uL (1.40-6.50); Neutrophils % (auto) 88.3 %; Platelet Count 313 K/uL (130-400); RDW Coefficient of Variation 15.2 % (11.5-14.5); RDW Standard Deviation 41.5 fL (36.4-46.3); Red Blood Count 3.76 M/uL (4.70-6.10); White Blood Count 16.71 K/ul (4.8-10.8)
[2024-05-30 08:11] LABS: Anion Gap 4 (3-11); BUN Creatinine Ratio 17.9 (10-20); Blood Urea Nitrogen 10 mg/dl (6-23); Calcium 8.5 mg/dl (8.6-10.3); Carbon Dioxide 28 mmol/L (21-32); Chloride 110 mmol/L (98-107); Creatinine Clr Calc Pharmacy 180.6 ml/min; Glucose 148 mg/dl (70-99(Fasting)); Iron < 10 mcg/dl (35-175); Magnesium 2.1 mg/dl (1.7-2.4); Potassium 4.5 mmol/L (3.5-5.1); Sodium 142 mmol/L (136-145); Total Iron Binding Cap Calc 293 mcg/dl (250-450); Transferrin 209 mg/dl (200-360)
[2024-05-30 08:18] LABS: Troponin I High Sensitivity 24.9 pg/ml (0-20)
[2024-05-30 08:42] LABS: Folate (Folic Acid),Ser orPlas 5.81 ng/ml (>5.38)
--- NOTE | 2024-05-30 09:00 | Hospitalist Progress Note ---
Date of Service May 30, 2024 Assessment & Plan (1) Tonsillar abscess: (2) Tonsillitis: (3) Group A streptococcal infection: (4) Acute anemia: (5) Elevated troponin: Plan Anthony Lin is a 38-year-old male with past medical history significant for substance abuse [on Suboxone] and GERD who presented to the ED on 05/29/2024 from [facility] secondary to progressively worsening sore throat x 1 week, dysphagia and shortness of breath. Of note, patient received 1 dose of oral Augmentin at the [facility] prior to presenting to the hospital. Patient was reportedly spiking fevers in the ED. He was subsequently found to have a left palatine tonsillar abscess on admitting imaging and he tested positive for group A strep as well. Left [place] Tonsillar Abscess Tonsillitis, Positive for Group A Strep Infection: Admitting CXR personally reviewed and was unremarkable. Soft tissue neck CT with contrast revealed a 9 x 15 x 8mm left palatine tonsillar abscess with enlargement of the pontine tonsils and asymmetrical mucosal thickening of the right oral and hypopharynx - likely infectious; there was no evidence of peritonsillar abscess. Lactate and procalcitonin were both negative on admission. Received IV Unasyn and IV Decadron in the ED. SOB now resolved without any incidence of acute hypoxia since presentation. Was evaluated by ENT surgeon, Dr. Grossman, this morning --> "Typically ton sillar abscesses are treated initially with medical therapy and most improve. Tonsillar abscesses do sometimes require I&D if medical therapy fails (different from peritonsillar). Patient reports his symptoms are much improved overnight. Discussed options of quinsy tonsillectomy vs continued steroids and antibiotics as outpatient and interval tonsillectomy. We agreed on the latter course of action as long as his symptoms continue to improve. Will submit for his surgery at my office this morning." Continues to saturate well on RA. Tolerating fluid intake without issue - patient requesting to advance DARIN. Received IVF with NSS x 2 bags. Monitor leukocytosis. Throat pain improving, patient seems comfortable. Continue IV Unasyn. Probiotic added on. Blood cultures pending - follow closely. Continue PRN pain control, telemetry monitoring. Acute Anemia: Hgb 9.4 on admission --> downtrended to 8.6 this morning. Patient without any overt sources of bleeding. FOBT pending - nursing staff made aware via TT to obtain. MCV<80. Iron studies notable for iron level <10; all other anemia workup unremarkable thus far including TIBC, transferrin, B12 and folate. Will check ferritin, reticulocyte count in AM. Peripheral smear also ordered. Will hold off on IV Venofer for now pending further laboratory evaluation. Recheck H/H tonight. No need for transfusion at this time however will order type/screen as a precaution. Elevated Troponin - IMPROVED: Initial troponin 62.8, second troponin improved to 11.2; presenting EKG personally reviewed and without any evidence of acute ST changes. Patient also without any chest pain/discomfort on admission. Additional repeat troponins 24.9 --> 13.7; patient still without any cardiac complaints upon evaluation this morning. Echo also was grossly unremarkable with LVEF of 55-60%, normal LV wall thickness and normal LVWM. Suspect troponin elevation as a result of demand ischemia, low suspicion for ACS at this time. Other Chronic Medical Conditions: Substance Use - Continue Suboxone 12mg daily. GERD - Continue omeprazole. DVT Prophylaxis: Continue SCDs/TEDs for now. Code Status: FULL CODE PCP: [facility] Disposition: Admitted in PCU/Telemetry - Anticipate discharge in 2-3 days depending on clinical course. Patient seen in collaboration with Dr. Ortiz. Please see addendum. I spent a total of 50 minutes coordinating, documenting, and providing care for this patient excluding time spent in the performance of separately billed services. This included personally reviewing all current laboratories and imaging studies, medical reconciliation, outpatient chart review and discussion with specialists. This chart was completed in part utilizing Speech Voice Recognition Software. Grammatical errors, random word insertions, pronoun errors, and incomplete sentences are an occasional consequence of this system due to software limitations, ambient noise, and hardware issues. Any formal questions or concerns about the content, text, or information contained within the body of this dictation should be directly addressed to the provider for clarification. Admission and Anticipated Discharge Date Admission Date: May 29, 2024 Supervising Physician Co-Signing Physician Notes Pt seen and examined by me, care coordinated w/ PA-C as above, pls refer to her note above for further detail. Pt admitted w/ tonsillar abscess, feels improved on antibiotics and steroid. + large tonsills b/l, Seen by ENT. Lungs CTAB, heart sounds regular. abdomen soft, nontender. Pt also found anemic, anemia work up. Will try to advance diet to clear liquid, cont. to closely monitor. MD Diana Subjective Patient seen and examined at bedside this morning. He reports significant improvement in his throat pain and that his shortness of breath has completely resolved. He is tolerating a liquid diet without issue. He is requesting to advance his diet to soft foods. Mentions he met with the ENT surgeon, Dr. Grossman, this morning. Plan to not pursue surgical intervention at this time. Review of Systems Review of Systems: At least ten systems reviewed and negative, except as noted in the subjective section. Physical Exam Physical Exam: General: WD/WN, NAD, sitting up in bed, pleasant, conversing appropriately. Guards at bedside. A+Ox3, euthymic affect. HEENT: Normocephalic, atraumatic. Conjunctivae normal. External ear/nose normal, notably enlarged tonsils, erythematous pharynx. Respiratory: Normal respiratory effort, lungs clear to auscultation, no wheeze/rales/rhonchi. No accessory muscle use. Cardiovascular: Mildly tachycardic rate, regular rhythm, normal peripheral pulses, no BLE edema. Vessels: No JVD. Abdomen/GI: Normal bowel sounds, soft, nondistended, nontender to palpation in all quadrants. Extremities/Musculoskeletal: No cyanosis or clubbing, able to actively move all extremities with ease. Neurologic: No overt focal deficits, CN's II-XI not formally tested but appear grossly intact bilaterally. Skin: No rashes, normal color, warm/dry. Results & Data Results & Data Vital Signs (Past 12 Hours) Vital Signs Temp Pulse Pulse Resp BP BP Pulse Ox 05/30/24 01:51 90 05/30/24 01:40 37 C 101 H 20 136/85 94 05/30/24 01:30 78 18 114/69 98 05/30/24 00:00 90 18 123/75 98 05/29/24 22:00 92 H 18 120/81 98 05/29/24 21:58 86 O2 Del Method 05/30/24 01:51 05/30/24 01:40 Room Air 05/30/24 01:30 Room Air 05/30/24 00:00 Room Air 05/29/24 22:00 Room Air 05/29/24 21:58 Laboratory Results Short CBC 05/29/24 05/30/24 Range/Units 18:20 07:22 WBC 15.64 H 16.71 H (4.8-10.8) K/ul Hgb 9.4 L 8.6 L (14.0-18.0) g/dl Hct 30.7 L 28.7 L (42.0-52.0) % Plt Count 340 313 (130-400) K/uL BMP 05/29/24 05/30/24 18:20 07:22 Sodium 137 142 Potassium 3.7 4.5 D Chloride 102 110 H Carbon Dioxide 28 28 BUN 11 10 Creatinine 0.81 0.56 L Glucose 110 H 148 H Calcium 8.4 L 8.5 L Liver Function 05/29/24 Range/Units 18:20 Total Bilirubin 0.6 (0.2-1.0) mg/dl Direct Bilirubin 0.1 (0-0.2) mg/dl AST 17 (13-39) U/L ALT 17 (7-52) U/L Alkaline Phosphatase 124 H (34-104) U/L Albumin 3.6 (3.4-5.0) gm/dl Urine 05/29/24 Range/Units 23:10 Urine Color Yellow Urine Appearance Clear (Clear) Urine pH 5.5 (4.5-7.5) Ur Specific [place] > 1.045 H (1.000-1.030) Urine Protein Negative (Negative) Urine Glucose (UA) Negative (Negative)
--- NOTE | 2024-05-30 11:27 | Electrocardiogram Report ---
Test Reason : Blood Pressure : */* mmHG Vent. Rate : 116 BPM Atrial Rate : 116 BPM P-R Int : 146 ms QRS Dur : 88 ms QT Int : 322 ms P-R-T Axes : 79 54 70 degrees QTcB Int : 447 ms Sinus tachycardia Otherwise normal ECG No previous ECGs available Confirmed by Colton Magallanes ([id number]) on 05/30/2024 11:27:19 AM Referred By: Confirmed By: Colton Magallanes
[2024-05-30] MEDS: BUPRENORPHINE/NALOXONE 2/0.5MG TAB SL SCH (12:01)
[2024-05-30] MEDS: BUPRENORPHINE/NALOXONE 8/2 MG TAB SL SCH (12:01)
[2024-05-30] MEDS: ADVANCED PROBIOTIC 625 MG CAPSULE PO SCH (16:32)
[2024-05-30] MEDS: CALCIUM CARBONATE 500 MG CHEWABLE TAB PO PRN (16:59)
[2024-05-30] MEDS: PANTOprazole 40 MG TAB PO ONE (17:07)
[2024-05-30 20:37] LABS: Hematocrit (blood only) 29.8 % (42.0-52.0)
[2024-05-31 06:55] LABS: Hematocrit (blood only) 26.8 % (42.0-52.0); Hemoglobin 8.1 g/dl (14.0-18.0); Mean Corpuscular Hemoglobin 22.9 pg (25.0-34.0); Mean Corpuscular Hgb Conc 30.2 g/dL (32.0-36.0); Mean Corpuscular Volume 75.7 fL (80.0-100.0); Mean Platelet Volume 11.1 fL (9.4-12.4); Platelet Count 340 K/uL (130-400); RDW Coefficient of Variation 15.2 % (11.5-14.5); RDW Standard Deviation 41.4 fL (36.4-46.3); Red Blood Count 3.54 M/uL (4.70-6.10); Reticulocyte % 1.33 % (0.50-2.00); White Blood Count 14.86 K/ul (4.8-10.8)
[2024-05-31 07:16] LABS: BUN Creatinine Ratio 11.3 (10-20); Calcium 8.5 mg/dl (8.6-10.3); Creatinine Clr Calc Pharmacy 163.1 ml/min; Phosphorus 3.9 mg/dl (2.5-4.9); Potassium 3.9 mmol/L (3.5-5.1)
[2024-05-31 07:35] LABS: Ferritin 30.8 ng/ml (8-388)
[2024-05-31] MEDS ORDERED: SUBOXONE PO SCH (09:00)
[2024-05-31] MEDS: PANTOprazole 40 MG TAB PO SCH (09:13)
--- NOTE | 2024-05-31 13:48 | Hospitalist Progress Note ---
Date of Service May 31, 2024 Assessment & Plan (1) Tonsillar abscess: (2) Tonsillitis: (3) Group A streptococcal infection: (4) Acute anemia: (5) Elevated troponin: Plan Anthony Lin is a 38-year-old male with past medical history significant for substance abuse [on Suboxone] and GERD who presented to the ED on 05/29/2024 from [facility] secondary to progressively worsening sore throat x 1 week, dysphagia and shortness of breath. Of note, patient received 1 dose of oral Augmentin at the correctional facility prior to presenting to the hospital. Patient was reportedly spiking fevers in the ED. He was subsequently found to have a left palatine tonsillar abscess on admitting imaging and he tested positive for group A strep as well. Left [place] Tonsillar Abscess Tonsillitis, Positive for Group A Strep Infection: Admitting CXR personally reviewed and was unremarkable. Soft tissue neck CT with contrast revealed a 9 x 15 x 8mm left palatine tonsillar abscess with enlargement of the pontine tonsils and asymmetrical mucosal thickening of the right oral and hypopharynx - likely infectious; there was no evidence of peritonsillar abscess. Lactate and procalcitonin were both negative on admission. Received IV Unasyn and IV Decadron in the ED. SOB now resolved without any incidence of acute hypoxia since presentation. Was evaluated by ENT surgeon, Dr. Grossman, on 05/30 --> "Typically tonsillar abscesses are treated initially with medical therapy and most improve. Tonsillar abscesses do sometimes require I&D if medical therapy fails (different from peritonsillar). Patient reports his symptoms are much improved overnight. Discussed options of quinsy tonsillectomy vs continued steroids and antibiotics as outpatient and interval tonsillectomy. We agreed on the latter course of action as long as his symptoms continue to improve. Will submit for his surgery at my office this morning." Continues to saturate well on RA. Tolerating soft food intake without issue - patient requesting to advance DARIN. Received IVF with NSS x 2 bags. Monitor leukocytosis - improving. Throat pain treated with PRN IV Tylenol, patient seems comfortable. Continue IV Unasyn. Probiotic added on. Blood cultures NGTD - continue to follow. Acute Anemia: Hgb 9.4 on admission --> continues to downtrend, now 8.1 today. Patient without any overt sources of bleeding. FOBT still pending - nursing staff made aware to obtain via TT. MCV<80. Iron studies notable for iron level <10; reticulocyte count WNL. Vitamin B12, folate WNL. Ferritin on lower side of "normal" range at 30.8; transferrin 209, TIBC 293. Peripheral smear favoring iron deficiency as the cause of his anemia at this time. No need for transfusion at this time however will need to do so if his Hgb drops <7. Type/screen completed. He remains hemodynamically stable. He may benefit from IV Venofer prior to discharge but currently holding off on iron supplementation for now ISO acute infection. Continue to monitor Hgb closely. Cont. IV PPI BID for now. FOBT pending collection. May need further GI eval. Consider adding sucralfate. Pt reports epigastric pain for about 1 month. Elevated Troponin - IMPROVED: Initial troponin 62.8, second troponin improved to 11.2; presenting EKG personally reviewed and without any evidence of acute ST changes. Patient also without any chest pain/discomfort on admission. Additional repeat troponins 24.9 --> 13.7; patient still without any cardiac complaints. Echo also was grossly unremarkable with LVEF of 55-60%, normal LV wall thickness and normal LVWM. Suspect troponin elevation as a result of demand ischemia, low suspicion for ACS at this time. Other Chronic Medical Conditions: Substance Use - Continue Suboxone 12mg daily. GERD - Continue omeprazole. DVT Prophylaxis: Continue SCDs/TEDs for now. Code Status: FULL CODE PCP: [facility] Disposition: Admitted in PCU/Telemetry - Anticipate discharge in 1-2 days depending on clinical course. Patient seen in collaboration with Dr. Ortiz. Please see addendum. I spent a total of 45 minutes coordinating, documenting, and providing care for this patient excluding time spent in the performance of separately billed services. This included personally reviewing all current laboratories and imaging studies, medical reconciliation, outpatient chart review and discussion with specialists. This chart was completed in part utilizing Speech Voice Recognition Software. Grammatical errors, random word insertions, pronoun errors, and incomplete sentences are an occasional consequence of this system due to software limitations, ambient noise, and hardware issues. Any formal questions or concerns about the content, text, or information contained within the body of this dictation should be directly addressed to the provider for clarification. Admission and Anticipated Discharge Date Admission Date: May 29, 2024 Supervising Physician Co-Signing Physician Notes Pt seen and examined by me, care coordinated w/ FLOWER as above, pls refer to her note above for further detail. Pt admitted w/ tonsillar abscess, feels improved on antibiotics and steroid. + large tonsills b/l, Seen by ENT. Lungs CTAB, heart sounds regular. abdomen soft. Pt also found anemic, reports abdominal/ epigastric pain for 1 month. Switch PPI to IV BID. FOBT pending collection. May need GI eval. Recommend IV venofer prior to DC. May add sucralfate. MD Diana Subjective Patient seen and examined at bedside this afternoon. Reports that he has been tolerating soft foods without much issue. He is endorsing some mild throat pain this afternoon. Denies any SOB or chest pain. We discussed the results of his anemia work-up and well as his cardiac work-up. Review of Systems Review of Systems: At least ten systems reviewed and negative, except as noted in the subjective section. Physical Exam Physical Exam: General: WD/WN, NAD, sitting up in bed, pleasant, conversing appropriately. Guards at bedside. A+Ox3, euthymic affect. HEENT: Normocephalic. Conjunctivae normal. External ear/nose normal, notably enlarged tonsils, erythematous pharynx. Respiratory: Normal respiratory effort, lungs clear to auscultation, no wheeze/rales/rhonchi. No accessory muscle use. Cardiovascular: Mildly tachycardic rate, regular rhythm, normal peripheral pulses, no BLE edema. Vessels: No JVD. Abdomen/GI: Normal bowel sounds, soft, nondistended, nontender to palpation in all quadrants. Extremities/Musculoskeletal: No cyanosis or clubbing, able to actively move all extremities with ease. Neurologic: No overt focal deficits, CN's II-XI not formally tested but appear grossly intact bilaterally. Skin: No rashes, normal color, warm/dry. Results & Data Results & Data Vital Signs (Past 12 Hours) Vital Signs Temp Pulse Resp BP Pulse Ox O2 Del Method 05/31/24 11:23 36.8 C 79 18 103/73 97 Room Air 05/31/24 07:45 36.7 C 85 18 125/68 95 Room Air 05/31/24 03:27 36.6 C 91 H 18 121/76 93 Room Air Laboratory Results Short CBC 05/30/24 05/31/24 Range/Units 20:11 06:08 WBC 14.86 H (4.8-10.8) K/ul Hgb 9.0 L 8.1 L (14.0-18.0) g/dl Hct 29.8 L 26.8 L (42.0-52.0) % Plt Count 340 (130-400) K/uL BMP 05/31/24 06:08 Sodium 143 Potassium 3.9 Chloride 109 H Carbon Dioxide 29 BUN 7 Creatinine 0.62 Glucose 104 H Calcium 8.5 L
[2024-05-31] MEDS: ACETAMINOPHEN 1,000 MG/100 ML VIAL IV PRN (14:24)
[2024-05-31] MEDS ORDERED: FERROUS SULFATE 325 MG TAB PO SCH (17:00)
[2024-05-31] MEDS: PANTOprazole 40 MG/10 ML SYR IV SCH (20:24)
[2024-05-31] MEDS ORDERED: PANTOprazole 40 MG TAB PO SCH (21:00)
[2024-05-31] MEDS ORDERED: DOCUSATE SODIUM 100 MG CAP PO SCH (21:00)
[2024-06-01 07:13] LABS: Hematocrit (blood only) 30.5 % (42.0-52.0); Hemoglobin 9.2 g/dl (14.0-18.0); Mean Corpuscular Hemoglobin 23.1 pg (25.0-34.0); Mean Corpuscular Hgb Conc 30.2 g/dL (32.0-36.0); Mean Corpuscular Volume 76.4 fL (80.0-100.0); Mean Platelet Volume 10.2 fL (9.4-12.4); Platelet Count 395 K/uL (130-400); RDW Coefficient of Variation 15.5 % (11.5-14.5); RDW Standard Deviation 42.4 fL (36.4-46.3); Red Blood Count 3.99 M/uL (4.70-6.10); White Blood Count 13.04 K/ul (4.8-10.8)
[2024-06-01 07:23] LABS: Calcium 8.8 mg/dl (8.6-10.3); Creatinine Clr Calc Pharmacy 138.5 ml/min; Magnesium 1.9 mg/dl (1.7-2.4); Phosphorus 4.9 mg/dl (2.5-4.9); Potassium 4.4 mmol/L (3.5-5.1)
[2024-06-01] MEDS: DOCUSATE SODIUM 100 MG CAP PO ONE (09:38)
--- NOTE | 2024-06-01 18:00 | Hospitalist Progress Note ---
Date of Service June 01, 2024 Assessment & Plan (1) Tonsillar abscess: (2) Tonsillitis: (3) Group A streptococcal infection: (4) Acute anemia: (5) Elevated troponin: Plan 38-year-old male with past medical history significant for substance abuse [on Suboxone] and GERD who presented to the ED on 05/29/2024 from [facility] secondary to progressively worsening sore throat x 1 week, dysphagia and shortness of breath. Of note, patient received 1 dose of oral Augmentin at the correctional facility prior to presenting to the hospital. Patient was reportedly spiking fevers in the ED. He was subsequently found to have a left palatine tonsillar abscess on admitting imaging and he tested positive for group A strep as well. He is being managed for the following: Left [place] Tonsillar Abscess Tonsillitis, Positive for Group A Strep Infection: Admitting soft tissue neck CT with contrast revealed a 9 x 15 x 8mm left palatine tonsillar abscess with enlargement of the pontine tonsils and asymmetrical mucosal thickening of the right oral and hypopharynx - likely infectious; there was no evidence of peritonsillar abscess. Lactate and procalcitonin were both negative on admission. Patient received IV Unasyn and IV Decadron in the ED with improvement in his shortness of breath. Was evaluated by ENT surgeon, Dr. Grossman, on 05/30 --> Continue with antibiotic management and outpatient tonsillectomy after the treatment course. Patient to follow-up with ENT upon discharge. Patient continues to saturate well on room air, reports improving throat pain, denies any problem swallowing food. Patient has been afebrile, leukocytosis has been improving. Continue with IV Unasyn, to oral antibiotic upon discharge. Continue probiotic. Admitting blood culture no growth for 48 hours. Anemia: Admitting hemoglobin of 9.4, has been around 8.5-9 since admission, cannot comment on the acuity of this anemia. Patient without any overt sources of bleeding. Iron studies with low iron level. Vitamin B12 and folate level low normal. PBS suggestive of iron deficiency anemia. Can continue with IV PPI, transition to oral PPI on discharge. Will need GI eval ultimately once his acute infection is resolved. Follow-up with GI as an outpatient. Patient reported epigastric pain for about 1 month [employer], add sucralfate to his home PPI. Will try to give IV Venofer prior to discharge, will put patient on oral iron/vitamin B12/folate supplement. Patient will need repeat iron studies and vitamin studies in about 3 months time. Elevated Troponin, Likely demand ischemia: Initial troponin 62.8, down trended, EKG with no acute ST or T changes. Echo with no LV wall motion abnormality. Patient with no chest pain. Other Chronic Medical Conditions: Substance Use - Continue Suboxone 12mg daily. GERD - Continue omeprazole. DVT Prophylaxis: Continue SCDs/TEDs for now. ambulate in the room. Code Status: FULL CODE PCP: [facility] Disposition: Likely dc satish. Admission and Anticipated Discharge Date Admission Date: May 29, 2024 Subjective Patient seen and examined at bedside. Patient was sitting up in bed, on room air, NAD, resting comfortably. Patient reports no problem swallowing food, reports feeling better, reports Improving throat pain. Physical Exam Physical Exam: General: WD/WN, NAD, sitting up in bed, pleasant, conversing appropriately. Guards at bedside. A+Ox3, euthymic affect. HEENT: Normocephalic. Conjunctivae normal. External ear/nose normal, notably enlarged tonsils, erythematous pharynx. Respiratory: Normal respiratory effort, lungs clear to auscultation, no wheeze/rales/rhonchi. No accessory muscle use. Cardiovascular: Mildly tachycardic rate, regular rhythm, normal peripheral pulses, no BLE edema. Vessels: No JVD. Abdomen/GI: Normal bowel sounds, soft, nondistended, nontender to palpation in all quadrants. Extremities/Musculoskeletal: No cyanosis or clubbing, able to actively move all extremities with ease. Neurologic: No overt focal deficits, CN's II-XI not formally tested but appear grossly intact bilaterally. Skin: No rashes, normal color, warm/dry. Results & Data Results & Data Vital Signs (Past 12 Hours) Vital Signs Temp Pulse Resp BP Pulse Ox O2 Del Method 06/01/24 16:19 36.6 C 96 H 18 122/63 98 Room Air 06/01/24 12:00 36.5 C 93 H 20 103/71 98 Room Air 06/01/24 08:06 36.6 C 94 H 18 129/79 98 Room Air
[2024-06-01] MEDS: DOCUSATE SODIUM 100 MG CAP PO SCH (20:45)
[2024-06-01] MEDS: SUCRALFATE 1 GM/10 ML UDC PO SCH (21:27)
[2024-06-01 23:46] VITALS: O2SAT 97
[2024-06-02 07:19] VITALS: TEMP 98.1
[2024-06-02 08:03] LABS: BUN Creatinine Ratio 15.8 (10-20); Calcium 8.7 mg/dl (8.6-10.3); Creatinine Clr Calc Pharmacy 133.1 ml/min; Magnesium 2.1 mg/dl (1.7-2.4); Phosphorus 4.6 mg/dl (2.5-4.9)
[2024-06-02 08:09] LABS: Hematocrit (blood only) 31.9 % (42.0-52.0); Hemoglobin 9.6 g/dl (14.0-18.0); Mean Corpuscular Hemoglobin 22.9 pg (25.0-34.0); Mean Corpuscular Hgb Conc 30.1 g/dL (32.0-36.0); Mean Corpuscular Volume 76.1 fL (80.0-100.0); Nucleated RBC # (auto) 0.02 K/uL (0.00-0.12); Nucleated RBC % (auto) 0.2 %; Platelet Count 435 K/uL (130-400); RDW Coefficient of Variation 15.4 % (11.5-14.5); RDW Standard Deviation 41.7 fL (36.4-46.3); Red Blood Count 4.19 M/uL (4.70-6.10); White Blood Count 9.95 K/ul (4.8-10.8)
--- NOTE | 2024-06-02 09:31 | Gastrointestinal Consultation ---
Date of Consultation June 02, 2024 Assessment & Plan (1) Anemia: Supervising Physician Co-Signing Physician Notes I examined the patient and reviewed the medical record, laboratory data and imaging studies. I agree with the assessment and plan of care as suggested by the advanced practice provider. Patient with iron deficiency anemia. Other than heartburn he does not really have any GI symptoms he has not noticed any melena or hematochezia at the current time I would 1. Placed on PPI twice daily 2. Iron replacement therapy 3. Will check for celiac markers 4. EGD and colonoscopy which can be done as outpatient as patient is going getting discharged today 5. Avoid any NSAIDs Patient is getting discharged today and he should follow-up with GI as an outpatient to get an EGD and a colonoscopy thank you for allowing us to take part in the care of your patient History of Present Illness Reason for Consultation: fobt +ve, anemia Requesting Physician: Azalea Montoya MD Attending Physician: Azalea Montoya MD History of Present Illness 38 year old male w/o PMH admitted w/ strep and a tonsillar abscess - GI asked to evaluate for MARY and heme positive stools H&H 9.7/31.9 w/ Iron <10 Ferritin 30. He is feeling well from a GI standpoint and denies any abd pain, black/bloody stools or emesis but does recall epigastric pain a few months ago that resolved w/ PPI therapy Plan for OP EGD/Colonoscopy once he recovers from strep w/ tonsillar abscess PO PPI 40 mg twice daily No NSAIDs Trend H&H Monitor and document GI output Transfuse PRN per primary service Start long-term supplementation daily Thank you for allowing us to participate in the care of this patient. Please call with any acute changes, questions or concerns. Please see addendum below with additional recommendation from my supervising physician. I spent a total of 55 minutes on the date of service in review of patient's record, and previously obtained information in person and appropriate medical visit, discussion and education of plan, with patient and/or caregiver, placing orders for tests/referral/procedures as medically necessary and documentation of pertinent clinical information in patient's medical records for their visit today. Allergies Allergy/AdvReac Type Severity Reaction Status Date / Time No Known Allergies Allergy Unverified 05/30/24 00:02 Home Medications Medication Instructions Recorded Confirmed Type Suboxone 12 mg PO DAILY 05/30/24 05/30/24 History L.acidop,casei,lactis,rham-B.lact,july 1 cap PO DAILY 2 weeks #14 caps 06/02/24 Rx 625 mg (10 billion cell) capsule (Advanced Probiotic) amoxicillin 875 mg-potassium 1 tab PO BID 11 days #22 tabs 06/02/24 Rx clavulanate 125 mg tablet cyanocobalamin (vitamin B-12) 500 500 mcg PO QAM #30 tabs 06/02/24 Rx mcg tablet docusate sodium 100 mg capsule 100 mg PO BID PRN constipation #30 06/02/24 Rx caps ferrous sulfate 325 mg (65 mg 325 mg PO QAM #30 tabs 06/02/24 Rx iron) tablet,delayed release folic acid 1 mg tablet 1 mg PO QAM #30 tabs 06/02/24 Rx pantoprazole 40 mg tablet,delayed 40 mg PO BID #60 tabs 06/02/24 Rx release sucralfate 100 mg/mL oral 1 g (10 mL) PO QID 9 days #360 mL 06/02/24 Rx suspension Patient History Social History Smoking Status: Former smoker Tobacco Type: Cigarettes Smoking End Date: 2021; Hx Alcohol Use: No Hx Substance Use: Yes Preferred Language: Hungarian Communication Ability: Effective Director Of Digital Platforms Required: No Beliefs That Will Affect Care: None Current Living Situation: Other Current Living Situation Comment: [facility] Feels Safe at Home: Yes Assistive Devices: None Review of Systems Review of Systems: All other findings negative except as noted in HPI. Physical Exam Constitutional: WD/WN, vitals as above Respiratory: normal respiratory effort, lungs clear to auscultation Cardiovascular: Rate/Rhythm: regular rate Gastrointestinal (Abdomen): Inspection/Auscultation: abdomen normal to inspection Skin: no rashes, warm and dry Results & Data Vital Signs (Past 12 Hours) Vital Signs Temp Pulse Pulse Resp BP Pulse Ox O2 Del Method 06/02/24 07:18 36.7 C 111 H 16 117/71 97 Room Air 06/02/24 07:08 87 06/02/24 03:28 36.5 C 97 H 20 116/78 97 Room Air 06/01/24 23:44 36.7 C 86 18 125/71 97 Room Air Laboratory Results 06/02/24 06/01/24 Range/Units 07:30 17:00 WBC 9.95 (4.8-10.8) K/ul RBC 4.19 L (4.70-6.10) M/uL Hgb 9.6 L (14.0-18.0) g/dl Hct 31.9 L (42.0-52.0) % MCV 76.1 L (80.0-100.0) fL MCH 22.9 L (25.0-34.0) pg MCHC 30.1 L (32.0-36.0) g/dL RDW Std Deviation 41.7 (36.4-46.3) fL RDW Coeff of Flor 15.4 H (11.5-14.5) % Plt Count 435 H (130-400) K/uL MPV 10.0 (9.4-12.4) fL Absolute Nucleated RBC 0.02 (0.00-0.12) K/uL Nucleated RBC % (auto) 0.2 % Sodium 143 (136-145) mmol/L Potassium 4.0 (3.5-5.1) mmol/L Chloride 108 H (98-107) mmol/L Carbon Dioxide 28 (21-32) mmol/L Anion Gap 7 (3-11) BUN 12 (6-23) mg/dl Creatinine 0.76 (0.6-1.4) mg/dl Est Cr Clr Drug Dosing 133.1 ml/min eGFR 118.72 BUN/Creatinine Ratio 15.8 (10-20) Glucose 110 H (70-99(Fasting)) mg/dl Calcium 8.7 (8.6-10.3) mg/dl Phosphorus 4.6 (2.5-4.9) mg/dl Magnesium 2.1 (1.7-2.4) mg/dl Stool Occult Bld Scrn Positive A (Negative) PG Care Time/CCT Total # of Minutes Spent Total Time Spent with Patient: Total time spent is greater than 50% in coordination of care (as documented) at patient's floor/unit and/or counseling patient: Coding Level of Care Code 00076 IN/OBS CONSULT LVL 3,45M Diagnoses Anemia D64.9
[2024-06-02] MEDS: FERROUS SULFATE 325 MG TAB PO SCH (09:40)
[2024-06-02] MEDS: FOLIC ACID 1 MG TAB PO SCH (09:40)
[2024-06-02] MEDS: CYANOCOBALAMIN (B-12) 500 MCG TABLET PO SCH (09:40)
[2024-06-02 10:42] VITALS: BP 107/73; PULSE 80; RESP 18
--- NOTE | 2024-06-02 11:53 | Discharge Summary ---
Date of Service June 02, 2024 Admission HPI Per Admitting Provider 38-year-old male with no significant past medical history coming from [facility] states that since last 5 days he is having sore throat which is getting progressively worse. Today he was feeling short of breath and also difficulty swallowing. Was given a dose of Augmentin in the [facility] and was sent in here. Was spiking temperatures in the ER. CT scan with contrast showing tonsillar abscess. Status post Unasyn and Decadron. Currently he is feeling better. States currently shortness of breath improved and no difficulty swallowing and states he can eat okay now. Denies any headache. No chest pain or shortness of. No nausea. No abdominal pain. Normal bowel and bladder movements. Denies blood in stools or black stools. Denies hematuria. Hemodynamics okay currently. Patient states he takes Suboxone 12 mg daily and is confirmed on phone with the medical department at [facility] emergency department. Past medical history. None Past surgical history none as per patient Social history. Used to smoke 2 packs of cigarettes in a week for about 5 to 8 years but not smoking since last 2 years. Denies any alcohol use. Denies any drug use. Family history. Denies any family history. Admission Exam Per Admitting Provider General- Not in distress Head- atraumatic Eyes- PERRL ENT- enlarged tonsils seen Neck- supple, no JVD. Lungs- clear to auscultation no wheezing or crackles Heart- regular rhythm; no murmur, no gallop. Abdomen- normal bowel sounds, soft, nontender, no distension. Extremities- no pretibial edema, no erythema seen Neuro- alert, oriented PERRL, no facial palsy; no dysarthria; moves extremities Principal Diagnosis Tonsillar abscess Tonsillitis Group A streptococcal infection Anemia, likely UGI bleed Discharge Exam General: WD/WN, NAD, sitting up in bed, pleasant, conversing appropriately. Guards at bedside. A+Ox3, euthymic affect. HEENT: Normocephalic. Conjunctivae normal. External ear/nose normal, notably enlarged tonsils, erythematous pharynx. Respiratory: Normal respiratory effort, lungs clear to auscultation, no wheeze/rales/rhonchi. No accessory muscle use. Cardiovascular: Mildly tachycardic rate, regular rhythm, normal peripheral pulses, no BLE edema. Vessels: No JVD. Abdomen/GI: Normal bowel sounds, soft, nondistended, nontender to palpation in all quadrants. Extremities/Musculoskeletal: No cyanosis or clubbing, able to actively move all extremities with ease. Neurologic: No overt focal deficits, CN's II-XI not formally tested but appear grossly intact bilaterally. Skin: No rashes, normal color, warm/dry. Discharge Data Allergies Allergy/AdvReac Type Severity Reaction Status Date / Time No Known Allergies Allergy Unverified 05/30/24 00:02 Consultations 05/29/24 21:49 ED Decision to Admit Stat 05/29/24 22:34 Consult Otolaryngology (Head and Neck) Routine 06/01/24 18:51 Consult Gastroenterology Routine Ordered Studies 05/29/24 18:09 CT soft tissue neck wo con Stat 05/29/24 20:45 CT soft tissue neck w con Stat Hospital Course (1) Tonsillar abscess: (2) Tonsillitis: (3) Group A streptococcal infection: (4) Acute anemia: (5) Elevated troponin: Plan 38-year-old male with past medical history significant for substance abuse [on Suboxone] and GERD who presented to the ED on 05/29/2024 from [facility] secondary to progressively worsening sore throat x 1 week, dysphagia and shortness of breath. Of note, patient received 1 dose of oral Augmentin at the correctional facility prior to presenting to the hospital. Patient was reportedly spiking fevers in the ED. He was subsequently found to have a left palatine tonsillar abscess on admitting imaging and he tested positive for group A strep as well. He was managed for the following: Left Clay Tonsillar Abscess Tonsillitis, Positive for Group A Strep Infection: Admitting soft tissue neck CT with contrast revealed a 9 x 15 x 8mm left palatine tonsillar abscess with enlargement of the pontine tonsils and asymmetrical mucosal thickening of the right oral and hypopharynx - likely infectious; there was no evidence of peritonsillar abscess. Lactate and procalcitonin were both negative on admission. Patient received IV Unasyn and IV Decadron in the ED with improvement in his shortness of breath. Was evaluated by ENT surgeon, Dr. Grossman, on 05/30 --> Continue with ant ibiotic management and outpatient tonsillectomy after the treatment course. Patient to follow-up with ENT upon discharge.Pt is aware. Patient continues to saturate well on room air, reports no throat pain, denies any problem swallowing food. Patient has been afebrile, leukocytosis has been normalized. Continue with IV Unasyn, to oral antibiotic upon discharge. Continue probiotic. Admitting blood culture no growth for 48 hours. Anemia: Admitting hemoglobin of 9.4, has been around 8.5-9 since admission, cannot comment on the acuity of this anemia. Patient without any overt sources of bleeding. Iron studies with low iron level. Vitamin B12 and folate level low normal. PBS suggestive of iron deficiency anemia. Can continue with IV PPI, transition to oral PPI on discharge. FOBT came back positive, GI evaluated, appreciate recommendation. Patient reports improvement in his upper belly pain with pantoprazole while in hospital. Continue with PPI twice daily, sucralfate for 9 more days, plan for outpatient GI follow-up, patient has been made aware. Patient advised to follow-up with medical care provider at [facility] facility for IV iron therapy after completion of his antibiotic. Continue with p.o. iron supplement, vitamin B12 and folate supplements. Patient will need repeat iron studies and vitamin studies in about 3 months time. Elevated Troponin, Likely demand ischemia: Initial troponin 62.8, down trended, EKG with no acute ST or T changes. Echo with no LV wall motion abnormality. Patient with no chest pain. Other Chronic Medical Conditions: Substance Use - Continue Suboxone 12mg daily. GERD - Continue omeprazole. DVT Prophylaxis: Continue SCDs/TEDs for now. ambulate in the room. Code Status: FULL CODE PCP: [facility] Patient being [facility] to [facility] with following instruction at the point of discharge: Follow-up with your primary care physician within a week time and likely you will need labs CBC/CMP/magnesium/phosphorus. You were evaluated for left palatine tonsillar abscess, ENT physician evaluated you and plan is to have tonsillectomy as an outpatient after the treatment course. You will be discharged on antibiotic to complete the course. Probiotics will be added. For your anemia likely secondary to gastritis/UGI bleed, you will need outpatient GI physician evaluation and possible scope. Continue to take your pantoprazole twice a day and sucralfate 4 times a day as prescribed. You will need repeat blood labs in 3 to 5 days time upon discharge to ensure stability of your hemoglobin. You are being started on po iron and vitamin B12/folate supplements. You will benefit from IV iron after completion of your antibiotic course. Coordinate with your general care provider at [facility] facility to set up IV iron (E.g. iv Venofer 400 mg daily for 2 days or some other equivalent of it). Take your medications as prescribed. Please make sure that you are able to get your medications today by calling your pharmacy before you leave the hospital so that your treatment continuity is not broken. Home Health Attestation I certify that this patient is under my care and that I, or a physicians assistant clinical nurse manager working with me, had a face to-face encounter that meets the home health [id number] encounter requirements with this patient. The encounter with the patient was in whole, or in part, for the following medical condition, which is the primary reason for home health care (list medical condition): I certify that, based on my findings, the following services are medically necessary home health services: My clinical findings support the need for the above services because: Further, I certify that my clinical findings support that this patient is homebound (i.e. absences from home require considerable and taxing effort and are for medical reasons or anglican services or infrequently or of short duration when for other reasons) because: Certification for Home Health Services: Based on the above findings, I certify that this patient is confined to the home and needs intermittent detention care, physical therapy and/or speech therapy or continues to need occupational therapy. The patient is under my care, and I have initiated the establishment of the plan of care. This patient will be followed by a physician who will periodically review the plan of care. Total Time Total Time Spent Total Time Spent (In Minutes): 40 Discharge Plan Discharge Items [facility] Disposition[facility] Reason For Visit: TONSILLAR ABSCESS, SOB Discharge Diagnosis: Tonsillar abscess Tonsillitis Group A streptococcal infection Anemia, likely UGI bleed Activity: Resume your previous activity Non-emergency contact: Primary Care Provider Call non-emergency contact if: you have any medication questions and your symptoms worsen Follow-up/Referrals: [facility] [Primary Care Provider] - Diet: Regular Diet Texture: Dental soft (bite-sized) Addtl Attending Provider Instructions: Follow-up with your primary care physician within a week time and likely you will need labs CBC/CMP/magnesium/phosphorus. You were evaluated for left palatine tonsillar abscess, ENT physician evaluated you and plan is to have tonsillectomy as an outpatient after the treatment course. You will be discharged on antibiotic to complete the course. Probiotics will be added. For your anemia likely secondary to gastritis/UGI bleed, you will need outpatient GI physician evaluation and possible scope. Continue to take your pantoprazole twice a day and sucralfate 4 times a day as prescribed. You will need repeat blood labs in 3 to 5 days time upon discharge to ensure stability of your hemoglobin. You are being started on po iron and vitamin B12/folate supplements. You will benefit from IV iron after completion of your antibiotic course. Coordinate with your general care provider at [facility] facility to set up IV iron (E.g. iv Venofer 400 mg daily for 2 days or some other equivalent of it). Take your medications as prescribed. Please make sure that you are able to get your medications today by calling your pharmacy before you leave the hospital so that your treatment continuity is not broken. Pending Studies at Discharge: Yes Stand-Alone Forms: My [facility] Skilled Items Patient informed of condition?: Yes Discharge Level of Care: Other Communicable Disease: No Discharge Prognosis: Stable Lines: None Urinary Catheter: No Medications and DC Order Prescriptions: New ferrous sulfate 325 mg (65 mg iron) Tablet,Delayed Release (Dr/Ec) 325 mg PO QAM Qty: 30 0RF docusate sodium 100 mg Capsule 100 mg PO BID PRN (Reason: constipation) Qty: 30 0RF Advanced Probiotic 625 mg (10 billion cell) Capsule 1 cap PO DAILY 14 Days Qty: 14 0RF sucralfate 100 mg/mL Suspension 1 g PO QID 9 Days Qty: 360 0RF cyanocobalamin (vitamin B-12) 500 mcg Tablet 500 mcg PO QAM Qty: 30 0RF folic acid 1 mg Tablet 1 mg PO QAM Qty: 30 0RF amoxicillin-pot clavulanate 875-125 mg tablet 1 tab PO BID 11 Days Qty: 22 0RF pantoprazole 40 mg Tablet,Delayed Release (Dr/Ec) 40 mg PO BID Qty: 60 0RF Continued Suboxone 12 mg PO DAILY Discontinued omeprazole 40 mg Capsule,Delayed Release(Dr/Ec) 40 mg PO DAILY Discharge Orders: Discharge Order (Routine); Ordered 06/02/24 Ordered By: Azalea Montoya Admission Data Admit Date/Time: 05/29/24 23:52 Attending Provider: Azalea Montoya Admit Provider: Reddy Álvarez Primary Care Provider: [facility] Other Providers: Reddy Álvarez; Sherwin Grossman; Javi Foy
== END 2024-06-02 12:49 | DRG 153 ==
LOC: ED 17:28 → 2S 23:52 → SUATTDRO 23:52 → 2S 05-30 01:30